=== PATIENT | male | born 1965 | race Caucasian/White ===

== ENCOUNTER 2016-12-14 07:46 | Inpatient (IN) | payer SELFPAY ==
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
--- NOTE | ~2016-12-14 | DS ---
Discharge Summary [facility] [address] [facility] [place]. [address] NAME: TEO MURO : 67 STATUS : DIS IN PAT#: [id number] AGE: 51 ADM/REG DATE : 12/14/16 MR#: [id number] REPORT SERV DATE: 12/17/16 DICTATED BY: CAROLE PHAM DATE: 12/17/16 REPORT STATUS : Draft TRANSCRIBED BY: MODL DATE: 12/17/16 ADMISSION DATE: 12/14/2016 DISCHARGE DATE: 12/17/2016 FINAL HOSPITAL DIAGNOSES: 1. Diabetic foot ulcer. 2. Diabetes mellitus. CONSULTATIONS: Dr. Baron, Vascular; Dr. Guevara ID; and Dr. Raymundo, Podiatry. PROCEDURES: 1. Amputation of the right hallux with rotational flap closure. Left hallux incision and drainage of blister. Lower extremity ultrasound showed normal arterial waveforms throughout the right lower extremity. The CLYDE is elevated most likely due to noncompliant arterial wall. 2. MRI of the foot on 12/16/2016 showing septic joint osteomyelitis involving MIP joint of the great toe and distal head of the proximal phalanx, where there is finding of destruction, pathological fracture, surrounding extensive soft tissue swelling of the great toe with deep soft tissue wound over the medial aspect of the IP joint, although no circumscribed soft tissue abscess. CURRENT PHYSICAL FINDINGS AND HISTORY OF PRESENT ILLNESS: Please see dictated H and P by Dr. Bates. In brief, the patient was admitted for nonhealing diabetic wound. HOSPITAL COURSE: The patient was afebrile at the time of presentation with stable vitals. Blood sugars were averaging in the low 200s. Additional lab work noted procalcitonin of less than 0.05. An A1c from 11/20/2016, 9.3. Lactate 1.3. Initial white count was 11.9, improving to 8.2 on 12/16/2016. No anemia. Foot culture showed beta strep negative. Blood cultures are negative to date. Surgical cultures are pending. HOSPITAL COURSE: The patient was admitted. Podiatry was consulted. medications were given. Insulin coverage was provided. Electrolyte protocol was initiated. IV antibiotics were also given as were home medications. Podiatry ordered MRI and wanted medical clearance for surgery, which was given. The patient was also seen by ID for medication management, as it was noted he had osteo. Vascular had nothing further to offer with his good perfusion. He went to surgery without difficulty. Post surgery, he became very agitated. He complained about IV antibiotics, blood sticks, his meals, and apparently asked to leave AMA. The on-call nurse practitioner was notified. Nursing states that Podiatry or call coverage was notified and preparing all that, the patient signed an AMA form and left. I attempted to call the patient at 10 o'clock after I was back on the floor and notified that he had left AMA, but there was no message on his home phone. We will continue to try and reach the patient, provide antibiotics, and confirm that he will get wound care and follow up with Podiatry, but at this point, the patient is not reachable despite my attempts. Discharge Summary [address] [address] NAME: TEO MRUO : 67 STATUS : DIS IN PAT#: [id number] AGE: 51 ADM/REG DATE : 12/14/16 MR#: [id number] REPORT SERV DATE: 12/17/16 DICTATED BY: CAROLE PHAM DATE: 12/17/16 REPORT STATUS : Draft TRANSCRIBED BY: HERBERT DATE: 12/17/16 MAYLIN/HERBERT Carole Pham M.D. / [id number] CC: Carole Pham M.D.
--- NOTE | ~2016-12-14 | CN ---
Consultation Report [facility] [address] [place]. [address] NAME: TEO MURO : 67 STATUS : ADM IN [facility]#: [id number] AGE: 51 ADM/REG DATE : 12/14/16 MR#: [id number] REPORT SERV DATE: 12/14/16 DICTATED BY: NAEEM BARON DATE: 12/14/16 REPORT STATUS : Draft TRANSCRIBED BY: MODZakia DATE: 12/14/16 CONSULTATION REPORT DATE OF CONSULTATION: 12/14/2016 REASON FOR CONSULTATION: Diabetic foot ulceration. BRIEF HISTORY: The patient is a 51-year-old gentleman with a past medical history significant for diabetes and tobacco abuse who has had an ulcer on his right great toe for many years now. His pain has worsened, so he came to the hospital for further evaluation and treatment. I was called by the emergency department for this and I asked that they get an arterial assessment. I asked they also call Podiatry Service regarding his foot care. The ER doctor asked that I see the patient to evaluate his blood flow. The patient is upset and refused to answer questions. In fact, he through a remote across the room when I turned down the volume on the TV. When asked about why he was upset, he said that he is not treated with respect. PAST MEDICAL HISTORY: Diabetes. PAST SURGICAL HISTORY: Unknown. SOCIAL HISTORY: Tobacco abuse. MEDICATIONS: Unknown. ALLERGIES: UNKNOWN. FAMILY HISTORY: Unknown. REVIEW OF SYSTEMS: Review of systems could not be performed as the patient refused to provide any history other than the aforementioned history. PHYSICAL EXAMINATION: VITAL SIGNS: Documented on the chart and were reviewed. GENERAL: The patient is awake, alert, oriented, in no apparent distress. He is extremely angry. HEENT/NECK: His head and neck examination is benign. HEART: Has a regular rate and rhythm. LUNGS: Clear. ABDOMEN: Soft, nontender, and nondistended, with a nonaneurysmal aorta. EXTREMITIES: He has a normal complement of upper extremity pulses without any significant edema or ischemic ulcerations. He has palpable femoral, popliteal, and pedal pulses. He has no significant edema except at his right forefoot. He has a large ulceration with Consultation Report [facility] [address] [facility] [place]. [address] NAME: TEO MURO : 67 STATUS : ADM IN PAT#: [id number] AGE: 51 ADM/REG DATE : 12/14/16 MR#: [id number] REPORT SERV DATE: 12/14/16 DICTATED BY: NAEEM BARON DATE: 12/14/16 REPORT STATUS : Draft TRANSCRIBED BY: MODZakia DATE: 12/14/16 swelling of his great toe. There is exposed bone. There is not cellulitis tracking up past the ankle. MUSCULOSKELETAL: Otherwise, benign. He has no flexion contractures. LABORATORY DATA: His laboratory investigations reveal no leukocytosis. He has normal renal function. An MRI is pending. ASSESSMENT AND PLAN: It looks like this gentleman has a diabetic foot ulcer. He needs to quit smoking. He needs a tight blood sugar control. I tried to offer my recommendations to the patient, but he snapped at me and refused to listen. He vented because he said that he is in pain. I tried to help this gentleman out, but he ultimately refused to answer questions or listen to me. He would not need any further vascular testing based on his pulse examination. I will be available as needed. CANCER CENTER DIRECTOR/HERBERT Naeem Baron M.D. / [id number] CC: Ebenezer Rojas M.D.
--- NOTE | ~2016-12-14 | OP ---
Record Of Operation [facility] [address] [place]. [address] NAME: TEO MURO : 67 STATUS : ADM IN [facility]#: [id number] AGE: 51 ADM/REG DATE : 12/14/16 MR#: [id number] REPORT SERV DATE: 12/17/16 DICTATED BY: KATHRIN CENTENO DATE: 12/17/16 REPORT STATUS : Draft TRANSCRIBED BY: MODL DATE: 12/17/16 DATE OF PROCEDURE: 12/17/2016 SURGEON: Kathrin Centeno DPM. CHANGE HOUSE ATTENDANT: None. PREOPERATIVE DIAGNOSES: Right hallux osteomyelitis with septic arthritis of the 1st metatarsophalangeal joint, left hallux blister. POSTOPERATIVE DIAGNOSES: Right hallux osteomyelitis with septic arthritis of the 1st metatarsophalangeal joint, left hallux blister. PROCEDURE: 1. Right hallux amputation with rotational flap closure. 2. Left hallux incision and drainage of blister. ANESTHESIA: General. HEMOSTASIS: Right ankle tourniquet set at 250 mmHg. ESTIMATED BLOOD LOSS: 1 mL. MATERIALS UTILIZED: 3-0 Prolene. INJECTABLES: 20 mL of 0.5% ropivacaine plain. COMPLICATIONS: None. SPECIMENS: Bone sent off for microbiology as well as histopathology. The cap of the 1st metatarsal of the right was sent for pathology as a clean margin. JUSTIFICATION FOR PROCEDURE: The patient is a pleasant 51-year-old male who presented to [facility] with a large ulceration to the medial aspect of his right hallux down to bone. The patient states that he has been dealing with this ulceration and wound for over four years. The patient is also a smoker and understands that this will cause difficulties with healing. The patient is adamantly requesting amputation of the toe as he is tired of dealing with it, and MRI was done showing again osteomyelitis to his hallux as well as septic arthritis to the 1st metatarsophalangeal joint. The patient understands all the risks, benefits, alternatives and the postoperative course in detail. The patient also has a pre-ulcerative lesion to his left hallux, which he requests debridement while under anesthesia. Again, the patient understands as in all surgeries, there are no guarantees, none of which have been given, stated, or implied. A thorough discussion was held with the patient that I would like him to be nonweightbearing for two weeks postoperatively in order to better help this incision to heal prior to him being full weightbearing again. He understands and states he will try. Record Of Operation [facility] [address] [place]. [address] NAME: TEO MURO : 67 STATUS : ADM IN PAT#: [id number] AGE: 51 ADM/REG DATE : 12/14/16 MR#: [id number] REPORT SERV DATE: 12/17/16 DICTATED BY: KATHRIN CENTENO DATE: 12/17/16 REPORT STATUS : Draft TRANSCRIBED BY: HERBERT DATE: 12/17/16 DESCRIPTION OF PROCEDURE AND FINDINGS: The patient was wheeled into the operating room and placed on the operating room table in the supine position, at which time, anesthesia was administered by Anesthesia Service, and a well-padded tourniquet was applied about the right ankle. Next, the right lower extremity was prepped, scrubbed, and draped in the usual sterile fashion. At this time, a time-out was performed in standard fashion, confirming the patient's name, identity, surgical procedure, laterality, and confirmed that antibiotics are running. At this time, an Esmarch bandage was utilized to exsanguinate the right foot followed by inflation of the tourniquet to 250 mmHg. Attention was directed to the right hallux where there is a large ulceration to the medial aspect. A racquet-type incision was made and planned, although the medial aspect of the right hallux skin was protected and saved for rotational flap closure if needed. Next, an incision was made down to the bone and the hallux. Distal phalanx and proximal phalanx were excised and passed off the back table to be sent off for microbiology as well as histopathology. Next, all liquefactive and necrotic tissue was removed. There was noted to be no pockets of purulence. No malodor. All tendons were retracted as far distal and severed proximally. The wound was then copiously irrigated with 3 L of sterile saline utilizing pulse lavage. Next, the surgeon as well as the surgical services assistant replaced their outer gloves with sterile gloves and reinforced all drapes with sterile towels. Next, utilizing the lateral aspect of the hallux skin, a rotational flap was created in order to cover the defect. It has been noted that prior to doing so, a sagittal saw was utilized to resect the cap of the cartilage of the 1st metatarsal to be sent off for histopathology. It has been noted that this bone appeared healthy with no signs of bone infection clinically. We will send it for histopathology for further assessment. Next, utilizing 3-0 Prolene, continuous reapproximation was performed in a horizontal mattress as well as simple suture fashion. The flap was flapped over the defect in order to prevent any proximal amputation of the 1st ray primarily to maintain the medial column of this patient's foot. We were able to close the defect with no tension. The remaining aspect of the flap from the hallux was excised and we were able to get great reapproximation of the skin with no tension again. Next, the aforementioned 20 mL of 0.5% ropivacaine plain was injected into proximal incision site. Adaptic soaked in Betadine covered the incision followed by copious gauze, Kerlix, and Robert bandage for light compression. Tourniquet was deflated and there was immediate hyperemic response to the all digits of the right foot. At this time, attention was directed to the left hallux where a #15 blade was utilized to decompress the blister on the medial aspect of the hallux. Small amount of antibiotic ointment was applied to this site followed by a Band-Aid. The patient tolerated the procedure and anesthesia well and left the operating room with vital signs stable and neurovascular status intact to the bilateral lower extremities. The patient will be transferred to recovery where nurses were asked to rest and elevate bilateral lower extremities. The patient will be transferred back to the floor once stable, and he is okay for discharge from Podiatry standpoint once medically stable with oral antibiotics. He is to follow up with me in office within three-five days. The patient understands that I recommend he be nonweightbearing to his right lower extremity. He will Record Of Operation [address] [place]. [address] NAME: TEO MURO : 67 STATUS : ADM IN [facility]#: [id number] AGE: 51 ADM/REG DATE : 12/14/16 MR#: [id number] REPORT SERV DATE: 12/17/16 DICTATED BY: KATHRIN CENTENO DATE: 12/17/16 REPORT STATUS : Draft TRANSCRIBED BY: HERBERT DATE: 12/17/16 attempt to do so. If he does weightbear, he puts himself at increased risk of wound complications. He states he understands. BASSAM/HERBERT Kathrin Centeno DPM / [id number] CC: Ollie Diaz M.D.
--- NOTE | ~2016-12-14 | CN ---
Consultation Report [facility] [address] [place]. [address] NAME: TEO MURO : 67 STATUS : ADM IN PAT#: [id number] AGE: 51 ADM/REG DATE : 12/14/16 MR#: [id number] REPORT SERV DATE: 12/15/16 DICTATED BY: HARI GUEVARA DATE: 12/15/16 REPORT STATUS : Draft TRANSCRIBED BY: MODL DATE: 12/15/16 INFECTIOUS DISEASE CONSULTATION DATE OF CONSULTATION: 12/15/2016 REASON FOR CONSULTATION: Antibiotic recommendations. HISTORY OF PRESENT ILLNESS: This is a 51-year-old man with a history of diabetes with peripheral neuropathy. He has had a very chronic ulcer involving his right great toe for at least two years. He actually says it started four years ago. He has been followed most recently at [address] The ulcer has worsened recently with a larger size and drainage and swelling of the entire right great toe. He was given a course of doxycycline and Bactrim finishing this late last week and early this week respectively. He has had no significant fevers or chills. However, because of the worsening condition and ongoing drainage, he presented to the emergency department early on the morning of 12/14/2016 at [facility] and an x-ray was done, which showed obvious changes of osteomyelitis in the great toe distal phalanx. The ulcer is deep and has exposed bone. The patient has been evaluated by Vascular Surgery who noted that given his palpable pedal pulses, he needed no further vascular workup. Podiatry has ordered an MRI prior to proceeding with surgery. The patient was started on vancomycin and Zosyn. He has been afebrile here. PAST MEDICAL HISTORY: Otherwise notable for hypertension and hyperlipidemia along with some psychiatric issues. ALLERGIES: NONE. MEDICATIONS: Present medications in the hospital in addition to the antibiotics include Norvasc, Lipitor, subcutaneous heparin, insulin, Prinivil, Glucophage, and Protonix. SOCIAL HISTORY: He is an ongoing smoker. Occasional alcohol consumption. 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 FAMILY HISTORY: Notable for diabetes. REVIEW OF SYSTEMS: Otherwise, negative. PHYSICAL EXAMINATION: VITAL SIGNS: The patient weighs 138 kg. He is afebrile. Blood pressure 112/70, pulse 74, respiratory rate 14. HEAD AND NECK: Shows clear oral cavity without thrush. LUNGS: Clear to auscultation. CARDIAC: Regular rate and rhythm without murmur, gallop, or rub. Consultation Report [facility] [id number] [place]. [address] NAME: TEO MURO : 67 STATUS : ADM IN PAT#: [id number] AGE: 51 ADM/REG DATE : 12/14/16 MR#: [id number] REPORT SERV DATE: 12/15/16 DICTATED BY: HARI GUEVARA DATE: 12/15/16 REPORT STATUS : Draft TRANSCRIBED BY: HERBERT DATE: 12/15/16 ABDOMEN: Obese, soft, and nontender. EXTREMITIES: The right great toe has a very large, open, draining wound on its medial aspect with exposed bone and diffuse soft tissue edema. There is some edema of the foot, although at present no significant warmth, and I do not appreciate significant erythema of the foot, all these have been described on exam yesterday. The patient has a peripheral IV without phlebitis. LABORATORY STUDIES: White blood cell count yesterday 11.9, hemoglobin 15.4, platelets 320. Creatinine 0.67. 11/20/2016 hemoglobin A1c 9.3. Wound cultures from 11/30/2016, showed from the right great toe grew MRSA and group B strep. Wound culture from yesterday is growing abundant beta-hemolytic strep, not group A or group B. Blood cultures from yesterday negative to-date. Foot x-ray as mentioned. IMPRESSION: Osteomyelitis of the right great toe. Some concern that he could have early involvement of the metatarsal. PLAN: 1. We will continue the empiric vancomycin since he did grow the MRSA back two weeks ago. 2. I think, though, we can stop the Zosyn since neither of the wound cultures has grown a gram-negative niyah, and the patient is not septic. I will stop it after his last dose today. 3. Await MRI results and surgical decision. BOB/HERBERT Hari Guevara M.D. / [id number] CC: Ebenezer Rojas M.D.
[~2016-12-14 07:46] MED LIST: ALEVE220 MG PO; BACDS PO; BACTROINT TOP; GLUCOPHAGE1000 MG PO; LEVEMIR SC; LIPITOR10 PO; LISINOPRIL40 MG PO; NORV5 PO; NOVOLOG SC; PRILOSEC OTC20 MG PO; VISINE0.05 % OPH
[2016-12-14 07:57] LABS: BASOPHILS 0.5 %; BASOPHILS ABSOLUTE 0.06 10/3/uL (0.0-0.16); EOSINOPHILS 2.5 %; HEMATOCRIT 44.8 % (40.0-51.0); HEMOGLOBIN 15.4 g/dL (13.6-17.8); IMMATURE GRANULOCYTES 0.2 %; IMMATURE GRANULOCYTES ABSOLUTE 0.02 10/3/uL (0.0-0.11); LYMPHOCYTES 16.1 %; LYMPHOCYTES ABSOLUTE 1.91 10/3/uL (0.67-4.30); MEAN CORPUS HGB CONC 34.4 g/dL (32.0-36.0); MEAN CORPUSCULAR HEMOGLOB 29.9 pg (26.0-34.0); MEAN PLATELET VOLUME 9.2 fL (9.2-13.0); MONOCYTES 6.9 %; MONOCYTES ABSOLUTE 0.82 10/3/uL (0.21-1.20); NEUTROPHILS 73.8 %; NEUTROPHILS ABSOLUTE 8.77 10/3/uL (2.02-8.40); PLATELET COUNT 320 10/3/uL (150-400); RED CELL COUNT 5.15 10/6/uL (4.7-6.1); WHITE BLOOD CELLS 11.9 10/3/uL (4.5-10.5)
[2016-12-14 08:00] LABS: ER CBC TAT 0 Hrs 05 Mins; MANUAL DIFF NO %
[2016-12-14 08:07] LABS: BUN (BLOOD UREA NITROGEN) 10 MG/DL (6-23); CALCIUM, SERUM 8.9 MG/DL (8.5-10.4); CHLORIDE, SERUM 99 MMOL/L (96-112); CO2 (CARBON DIOXIDE) 26 MMOL/L (24-34); CREATININE 0.67 MG/DL (0.70-1.30); GFR AFRICAN AMERICAN 130 ML/MIN (>=60); GFR NON AFRICAN AMERICAN 112 ML/MIN (>=60); GLUCOSE, SERUM 186 MG/DL (60-99); POTASSIUM, SERUM 4.2 MMOL/L (3.5-5.3); SODIUM, SERUM 138 MMOL/L (135-148)
[2016-12-14] MEDS ORDERED: CIALIS10 MG PO (08:40)
[2016-12-14] MEDS ORDERED: MONODOX100 MG PO (08:44)
[2016-12-14] MEDS ORDERED: BACDS PO (08:45)
[2016-12-14 09:37] LABS: LACTATE 1.3 MMOL/L (0.3-2.4)
[2016-12-16 07:31] LABS: BASOPHILS 0.5 %; BASOPHILS ABSOLUTE 0.04 10/3/uL (0.0-0.16); EOSINOPHILS 3.5 %; EOSINOPHILS ABSOLUTE 0.29 10/3/uL (0.0-0.53); HEMATOCRIT 42.2 % (40.0-51.0); HEMOGLOBIN 14.3 g/dL (13.6-17.8); IMMATURE GRANULOCYTES 0.4 %; IMMATURE GRANULOCYTES ABSOLUTE 0.03 10/3/uL (0.0-0.11); LYMPHOCYTES 15.1 %; LYMPHOCYTES ABSOLUTE 1.24 10/3/uL (0.67-4.30); MEAN CORPUS HGB CONC 33.9 g/dL (32.0-36.0); MEAN CORPUSCULAR HEMOGLOB 29.8 pg (26.0-34.0); MEAN CORPUSCULAR VOLUME 87.9 fL (80-100); MEAN PLATELET VOLUME 9.3 fL (9.2-13.0); MONOCYTES 6.6 %; MONOCYTES ABSOLUTE 0.54 10/3/uL (0.21-1.20); NEUTROPHILS 73.9 %; NEUTROPHILS ABSOLUTE 6.09 10/3/uL (2.02-8.40); PLATELET COUNT 317 10/3/uL (150-400); RBC DISTRIBUTION WIDTH 13.2 % (12.0-16.0); WHITE BLOOD CELLS 8.2 10/3/uL (4.5-10.5)
[2016-12-16 07:36] LABS: MANUAL DIFF NO %
[2016-12-16 07:46] LABS: BUN (BLOOD UREA NITROGEN) 12 MG/DL (6-23); CALCIUM, SERUM 8.5 MG/DL (8.5-10.4); CHLORIDE, SERUM 101 MMOL/L (96-112); CO2 (CARBON DIOXIDE) 26 MMOL/L (24-34); CREATININE 0.88 MG/DL (0.70-1.30); GFR AFRICAN AMERICAN 116 ML/MIN (>=60); GFR NON AFRICAN AMERICAN 100 ML/MIN (>=60); POTASSIUM, SERUM 4.4 MMOL/L (3.5-5.3); SODIUM, SERUM 137 MMOL/L (135-148)
[2016-12-16 07:47] LABS: GLUCOSE, SERUM 273 MG/DL (60-99)
[2016-12-17 07:19] LABS: INTERNATIONAL NORMAL RATI 1.1 UNITS (-); PROTIME (NOT ORD) 13.6 SEC (12.0-14.5)
== END 2016-12-17 20:23 | disposition left against medical advice (07) | DRG 617 ==
LOC: ER 07:46 → 4SO 13:34
PROVIDERS: Internal Medicine; Physician Assistant; Podiatrist
PROC: 0Y6P0Z1 Detachment at Right 1st Toe, High, Open Approach (ICD-10-PCS; principal; 2016-12-17 11:45)
PROC: 0H9MXZZ Drainage of Right Foot Skin, External Approach (ICD-10-PCS; principal; 2016-12-17 11:45)
DX: E11.69 Type 2 diabetes mellitus with other specified complication (principal); M00.9 Pyogenic arthritis, unspecified; Z68.41 Body mass index [BMI] 40.0-44.9, adult; M86.8X7 Other osteomyelitis, ankle and foot; E66.01 Morbid (severe) obesity due to excess calories; I10 Essential (primary) hypertension; E11.621 Type 2 diabetes mellitus with foot ulcer; Z79.4 Long term (current) use of insulin; Z79.84 Long term (current) use of oral hypoglycemic drugs; B35.1 Tinea unguium; F17.210 Nicotine dependence, cigarettes, uncomplicated; E11.42 Type 2 diabetes mellitus with diabetic polyneuropathy; E78.5 Hyperlipidemia, unspecified; B95.4 Other streptococcus as the cause of diseases classified elsewhere; Z23 Encounter for immunization
CPT/HCPCS: 73630-RT; 73718-RT; 80048; 80202; 82962; 83605; 84145; 85025; 85610; 87015; 87040; 87070; 87075; 87102; 87116; 87205; 88304; 88305; 88311; 93005; 93926; 96365; 96372; 96375; 99285; A9270-GY; J0330; J1170; J1885; J2250; J2405; J2543; J2710; J2795; J3010; J3370